=== PATIENT | female | born 1940 | race Caucasian/White ===

== ENCOUNTER 2025-04-21 08:23 | Emergency (ER) | payer BC ==
[~2025-04-21] VITALS: Ht 152.4 cm; Wt 55.9 kg
[2025-04-21 08:37] VITALS: TEMP 97.6
[2025-04-21] MEDS: OXYMETAZOLINE 0.05% NASAL SPRAY ONE (09:25)
[2025-04-21 10:45] VITALS: BP 171/80; O2SAT 94
== END 2025-04-21 11:10 | disposition home or self-care (01) ==
LOC: M ED 08:23 → EDBD 08:23 → M ED 11:10
DX: R04.0 Epistaxis (principal); I48.91 Unspecified atrial fibrillation; I10 Essential (primary) hypertension; Z79.01 Long term (current) use of anticoagulants